=== PATIENT | female | born 1980 | race Hispanic/Latino ===

== ENCOUNTER 2018-06-19 12:55 | Emergency (ER) | payer BC ==
[2018-06-19] MEDS ORDERED: OCTYL 2-CYANOACRYLATE 1 EACH TP ONE (13:39)
== END 2018-06-19 15:05 | disposition home or self-care (01) ==
LOC: EDH 12:55
DX: S61.210A Laceration without foreign body of right index finger without damage to nail, initial encounter (principal); E07.9 Disorder of thyroid, unspecified; Z88.1 Allergy status to other antibiotic agents; Z88.8 Allergy status to other drugs, medicaments and biological substances; W26.0XXA Contact with knife, initial encounter; Y93.89 Activity, other specified; Y92.89 Other specified places as the place of occurrence of the external cause; Y99.8 Other external cause status
CPT/HCPCS: 12001; 99282

== ENCOUNTER 2024-03-31 13:06 | Emergency (ER) | payer BC ==
[~2024-03-31] VITALS: Ht 165.1 cm; Wt 108.0 kg
[2024-03-31 14:37] LABS: RAPID GROUP A STREP negative (NEGATIVE)
[2024-03-31 14:47] LABS: COVID19 (SARS ANTIGEN RAPID) PRESUMPTIVE NEGATIVE (NEGATIVE); INFLUENZA TYPE A Negative For Type A (NEGATIVE); INFLUENZA TYPE B Negative For Type B (NEGATIVE)
[2024-03-31 15:23] VITALS: BP 138/80; PULSE 88; RESP 18; TEMP 98.2; O2SAT 98
== END 2024-03-31 15:28 | disposition home or self-care (01) ==
LOC: EDH 13:06
DX: J06.9 Acute upper respiratory infection, unspecified (principal); E03.9 Hypothyroidism, unspecified; E11.9 Type 2 diabetes mellitus without complications; Z20.822 Contact with and (suspected) exposure to COVID-19; Z88.8 Allergy status to other drugs, medicaments and biological substances
CPT/HCPCS: 87426; 87804; 87880

== ENCOUNTER 2024-04-27 12:53 | Emergency (ER) | payer BC ==
[~2024-04-27] VITALS: Ht 165.1 cm; Wt 103.9 kg
[2024-04-27 12:56] VITALS: BP 123/86; PULSE 93; RESP 16; TEMP 98.2
== END 2024-04-27 13:41 | disposition left against medical advice (07) ==
LOC: EDH 12:53
DX: S61.210A Laceration without foreign body of right index finger without damage to nail, initial encounter (principal); Z53.21 Procedure and treatment not carried out due to patient leaving prior to being seen by health care provider; X58.XXXA Exposure to other specified factors, initial encounter; Y93.9 Activity, unspecified; Y92.89 Other specified places as the place of occurrence of the external cause; Y99.8 Other external cause status